=== PATIENT | male | born 1975 | race Caucasian/White ===

== ENCOUNTER 2021-01-19 10:20 | Emergency (ER) | payer OTHER ==
[~2021-01-19] VITALS: Ht 172.7 cm; Wt 78.5 kg
--- NOTE | 2021-01-19 10:35 | NUR ---
Patient came in to the er c/o left arm pain s/p fall, 5/10 pain scale. On room air, breathing evenly and unlabored. Kept comfortable, will continue to monitor accordingly.
--- NOTE | 2021-01-19 10:58 | NUR ---
antonette at bedside for x-ray
[2021-01-19 12:06] VITALS: BP 118/74
--- NOTE | 2021-01-19 12:07 | NUR ---
Patient discharged to home in stable condition. Written and verbal after care instructions given. Patient verbalizes understanding of instruction.
== END 2021-01-19 12:06 | disposition home or self-care (01) ==
LOC: ER 10:28
DX: M25.532 Pain in left wrist (principal); M25.512 Pain in left shoulder; M25.522 Pain in left elbow; W19.XXXA Unspecified fall, initial encounter; Y93.89 Activity, other specified; Y92.89 Other specified places as the place of occurrence of the external cause; Y99.8 Other external cause status
CPT/HCPCS: 73030-TC; 73080-TC; 73110